=== PATIENT | female | born 1955 | race Caucasian/White ===

== ENCOUNTER → 2020-04-07 | Outpatient (CLI) | payer MEDICARE ==
[~2020-04-07] MED LIST: CATHETER FLUSH 10 ML SYR IV PRN; HOLD METFORMIN - RECEIVED CONTRAST 20 ML VIAL IV SCH; IOHEXOL 350 MG/ML 150 ML (OMNIPAQUE 350) VIAL IV ONE; NS 100 ML (IVPB) BAG IV ONE
--- NOTE | 2020-04-07 14:43 | Diagnostic Imaging Report ---
PROCEDURE: CT angiography of the chest with contrast. TECHNIQUE: Multiple contiguous axial images were obtained through the chest after uneventful bolus administration of intravenous contrast. 3D reconstructed CTA MIP acquisitions were also performed. Auto Exposure Controls were utilized during the CT exam to meet ALARA standards for radiation dose reduction. INDICATION: Elevated d-dimer and persistent cough and intermittent mid chest pain. COMPARISON: No prior studies are available for comparison. FINDINGS: Evaluation of the pulmonary arterial system is without evidence of thromboembolism. No filling defects are seen within central, lobar or segmental branches. The thoracic aorta is normal caliber. No dissection is identified. No pericardial or pleural fluid is identified. No pulmonary infiltrates are detected. No nodule or mass is detected. The bony structures are nonacute. Upper abdomen is unremarkable. IMPRESSION: No evidence of pulmonary embolism or thoracic aortic dissection. No acute features detected. [id number] Report was called/faxed to Gwendolyn/office of Dr. Avila by wood at 2:45P.M. Dictated by: Dictated on workstation # [id number]
== END ==
LOC: RAD FS 13:02
PROVIDERS: ATTEND Family Medicine
DX: R79.1 Abnormal coagulation profile (principal); R05 Cough; R07.9 Chest pain, unspecified
CPT/HCPCS: 71275